=== PATIENT | female | born 1995 | race Two or more races ===

== ENCOUNTER 2022-05-15 23:44 | Emergency (ER) | payer OTHER ==
[~2022-05-15] VITALS: Ht 162.6 cm; Wt 59.0 kg
[2022-05-15 23:44] VITALS: BP 138/85
== END 2022-05-16 02:13 | disposition home or self-care (01) ==
LOC: ER 23:44
DX: F41.0 Panic disorder [episodic paroxysmal anxiety] (principal)

== ENCOUNTER 2023-02-03 17:14 | Emergency (ER) | payer OTHER ==
[~2023-02-03] VITALS: Ht 162.6 cm; Wt 51.8 kg
[2023-02-03 17:21] VITALS: BP 142/79; PULSE 80; RESP 18; O2SAT 100
== END 2023-02-03 17:22 | disposition left against medical advice (07) ==
LOC: EDBD 17:14 → ER 17:14
DX: F41.9 Anxiety disorder, unspecified (principal); Z53.21 Procedure and treatment not carried out due to patient leaving prior to being seen by health care provider